=== PATIENT | female | born 1965 | race Caucasian/White ===

== ENCOUNTER → 2017-09-14 | Outpatient (CLI) | payer BC ==
[~2017-09-14] MED LIST: AMOXICILLIN 50500 MG PO; PERCOCET 5/3251 EACH PO; VIVELLE-DO0.1 MG/24 TD
--- NOTE | 2017-09-14 21:26 | RADIOLOGY REPORT PS360 ---
HEPATOBILIARY SCAN WITH FATTY MEAL ORDERING PHYSICIAN : JUAN ANTONIO CRUZ PATIENT AGE: 51 years GENDER: Female HISTORY: Right upper quadrant pain and nausea Following 8.02 millicuries Tc Choletec, images of the right upper quadrant were obtained. There is prompt uptake of radionuclide by the liver which is grossly unremarkable. Small bowel is visualized. This initial portion of the study is normal. The gallbladder was allowed to fill out to 60 minutes. This point fatty meal utilizing 1 serving of ensure was administered with imaging then performed over over 60 minutes.([facility]K still not available from ice skating coach) The obtain data was analyzed and reveals a 40% gallbladder ejection fraction (normal greater than 50%; borderline 35-50%). The technologist verbally states the patient had no pain with fatty meal IMPRESSION: 40% % gallbladder ejection fraction. This reflects borderline low ejection fraction following fatty meal
--- NOTE | 2017-09-14 21:26 | RADIOLOGY REPORT PS360 ---
HEPATOBILIARY SCAN WITH FATTY MEAL ORDERING PHYSICIAN : JUAN ANTONIO CRUZ PATIENT AGE: 51 years GENDER: Female HISTORY: Right upper quadrant pain and nausea Following 8.02 millicuries Tc Choletec, images of the right upper quadrant were obtained. There is prompt uptake of radionuclide by the liver which is grossly unremarkable. Small bowel is visualized. This initial portion of the study is normal. The gallbladder was allowed to fill out to 60 minutes. This point fatty meal utilizing 1 serving of ensure was administered with imaging then performed over over 60 minutes.(CCK still not available from insurance sales executive) The obtain data was analyzed and reveals a 40% gallbladder ejection fraction (normal greater than 50%; borderline 35-50%). The technologist verbally states the patient had no pain with fatty meal IMPRESSION: 40% % gallbladder ejection fraction. This reflects borderline low ejection fraction following fatty meal
== END ==
LOC: RAD 10:09
DX: R10.11 Right upper quadrant pain (principal)
CPT/HCPCS: A9537